=== PATIENT | male | born 1965 | race Caucasian/White ===

== ENCOUNTER 2018-04-06 14:11 | Outpatient (CLI) | payer MEDICAID, SELFPAY ==
--- NOTE | 2018-04-06 12:59 | DI.REPORT_ITS ---
SYMPTOM/DIAGNOSIS: F/U ORIF RT TIBIAL PLATEAU RIGHT KNEE: AP and lateral projections of the right knee are compared with the previous study of 03/24/18. Again noted is the severely comminuted proximal tibial fracture. Side plate and screw fixation devices in place. The fracture fragments remain in good position. No interval change is apparent.
== END 2018-04-06 14:12 ==
PROVIDERS: PCP Specialist/Technologist Athletic Trainer; Visit Provider Student in an Organized Health Care Education/Training Program
DX: S82.141D Displaced bicondylar fracture of right tibia, subsequent encounter for closed fracture with routine healing (principal)
CPT/HCPCS: 73560

== ENCOUNTER 2018-04-27 13:58 | Outpatient (CLI) | payer MEDICAID, SELFPAY ==
--- NOTE | 2018-04-27 13:52 | DI.REPORT_ITS ---
SYMPTOMS/DIAGNOSIS: F/U RIGHT KNEE OPEN REDUCTION AND INTERNAL FIXATION RIGHT KNEE: When compared with the prior study of 04/06, again noted is the fracture of the proximal tibia. Plate and screw fixation device is in place. There has been no evident change in the apposition or alignment of the fracture fragments.
== END 2018-04-27 13:59 ==
PROVIDERS: PCP Specialist/Technologist Athletic Trainer; Visit Provider Student in an Organized Health Care Education/Training Program
DX: S82.141D Displaced bicondylar fracture of right tibia, subsequent encounter for closed fracture with routine healing (principal)
CPT/HCPCS: 73560

== ENCOUNTER 2018-04-28 08:09 | Outpatient (CLI) | payer MEDICAID, SELFPAY ==
--- NOTE | 2018-04-28 13:33 | DI.RPTCT_ITS ---
SYMPTOM/DIAGNOSIS: CLOSED FX RT TIBIAL PLATEAU, S82.141D, S/P ORIF RT TIB PLATEAU WITH FLEXION BLOCK, EVALUATE FOR BONY IMPINGEMENT RIGHT KNEE CT; Multiple contiguous axial images of the right knee were obtained. Sagittal and coronal reformatted images were evaluated on the Siemens work station. Comparison xray is 05/28/18. There is a comminuted fracture involving components of both the lateral and medial tibial plateau and the tibial spines. There are side plates and screws transfixing the fracture. There is artifact from the patient's orthopedic hardware. There is a depressed component of the fracture through the lateral tibial plateau. There is depression of approximately 5 mm. noted. There is an osseous fragment measuring 2.1 AP by 1.1 transverse just lateral to the tibial spines. The fracture fragment is rotated 90 degrees. The articular surface of the fracture fragment is directed medially (series 6, image 341). There is a smaller 1.3 cm. fracture fragment just lateral to the tibial spines which is rotated 90 degrees with the articular surface of the fracture fragment directed posteriorly (series 6, image 345). No new fractures or dislocations are appreciated. There is a small persistent joint effusion. There is edema seen in the soft tissues about the knee. IMPRESSION: Status post internal fixation of a comminuted, mildly depressed tibial plateau fracture as described above.
== END 2018-04-28 08:10 ==
PROVIDERS: PCP Specialist/Technologist Athletic Trainer; Visit Provider Student in an Organized Health Care Education/Training Program
DX: S82.141D Displaced bicondylar fracture of right tibia, subsequent encounter for closed fracture with routine healing (principal); M25.461 Effusion, right knee
CPT/HCPCS: 73700

== ENCOUNTER 2018-05-05 10:52 | Day surgery (SDC) | payer MEDICAID, SELFPAY ==
[2018-05-05 11:08] VITALS: BP 115/74; PULSE 63; RESP 16; TEMP 36.9; O2SAT 96
[2018-05-05] MEDS: Lactated Ringers 1,000 ML 80 ML IV (11:48)
[2018-05-05 13:53] VITALS: BP 130/64; PULSE 60; RESP 14; TEMP 36.3; O2SAT 95
[2018-05-05 13:58] VITALS: BP 128/71; PULSE 59; RESP 14; TEMP 36.3; O2SAT 97
--- NOTE | 2018-05-05 13:59 | W.PM.DSUDISC ---
Discharge Plan Discharge Details Reason For Visit: (R) KNEE Attending Provider: Anthony Coyle Primary Care Provider: Ruperto Arango Disposition Patient Disposition: HOME Condition: Good Home Meds and New Rx's Prescriptions: Continue acetaminophen [Mapap Extra Strength] 500 MG tablet 1,000 mg PO TID PRN PRNQty: 100 RF: 3 ibuprofen 600 MG tablet 600 mg PO TID PRN PRNQty: 90 RF: 3 aspirin [Aspir-81] 81 mg Tablet,Delayed Release (Dr/Ec) 81 mg PO DAILY RF: 0 Discharge Instructions Additional Instructions: Activity: You may begin moving your knee as soon as possible. You shold work aggressively on flexion. In the operative room, the knee was bent to 110 degrees. You may wear the knee immobilizer for ambulation. You should only attempt to put 25% weight on the knee and progress very slowly using crutches. Medications: - Continue Tylenol and Ibuprofen Dressings: You may remove the dressings in 2-3 days and apply a bandaid. It may get wet after the initial dressing is removed. Follow-up: 1-2 weeks Equipment/Supplies: Non-Weight Bearing Crutches Activity:: Elevate Remove Dressings/Wound Care:: 72 hours Shower/Bathe:: 72 hours Diet:: As Tolerated Discharge Orders Discharge Orders: Discharge Order (Routine); Ordered 05/05/18 Ordered By: Anthony Coyle DS: Diagnosis Discharge Diagnosis (1) Closed fracture of right tibial plateau: Status: Acute (2) Arthrofibrosis of knee joint: Status: Acute
[2018-05-05 14:03] VITALS: BP 139/90; PULSE 57; RESP 19; TEMP 36.3; O2SAT 99
[2018-05-05] MEDS: Bupivacaine 0.5% Pres-Free 30 ML VIAL (14:04)
[2018-05-05 14:15] VITALS: BP 138/74; PULSE 57; RESP 15; TEMP 36.5; O2SAT 99
[2018-05-05] MEDS: HYDROcodone 5/Acetaminophen 325 TAB PO (14:57)
[2018-05-05 15:06] VITALS: BP 129/70; PULSE 54; RESP 16; TEMP 36; O2SAT 97
--- NOTE | 2018-05-06 10:00 | ROE_ITS ---
REPORT OF OPERATIVE PROCEDURE DATE OF SURGERY May 05, 2018 PREOPERATIVE DIAGNOSES Right knee arthrofibrosis status post ORIF of proximal tibia fracture. POSTOPERATIVE DIAGNOSES Right knee arthrofibrosis status post ORIF of proximal tibia fracture. SURGERY Arthroscopic right knee debridement with lysis of adhesions. SURGEON Anthony Coyle M.D. FINDINGS There was a small tear in the anterior portion of the medial meniscus. This was debrided down. The me dial compartment appeared to be intact without significant deformities. The lateral compartment in ge neral looked quite good with the meniscus appearing to be healing in, except for a portion within the anterior fibers of the lateral meniscus. There was the malrotated piece, which was seen on the x-ray , which was somewhat prominent by maybe a millimeter or two in the very lateral aspect of the notch. This was smoothed down with a dennis. The posterolateral aspect of the lateral tibial plateau did have a loose piece of cartilage, which was easily mobile and impinging on the femur. This was also removed . Significant adhesions were seen between the patella and within the suprapatellar pouch. These were resected and manipulation was performed showing postoperative knee flexion of 110 degrees from its pr eoperative flexion of 55 degrees. ANESTHESIA General. ESTIMATED BLOOD LOSS Minimal. COMPLICATIONS None. DISPOSITION The patient was awakened from anesthesia and taken to the PACU in stable condition. INDICATIONS FOR PROCEDURE Thomas is a 52-year-old who unfortunately suffered a complex proximal tibia fracture. He first underwent external fixation followed by upper fixation both medial and lateral approaches. He recovered nicely from a pain profile, but he was unable to really gain much motion. He had significant pain with both extension and flexion. He had one malrotated piece on the CT scan, but it was not clearly impinging, therefore, given this picture, I did recommend a lysis of adhesions with an arthroscopy to evaluate the knee motion in the Operating Room. I reviewed the risk of procedure to include bleeding, infection, pain, stiffness, re-fracture, recurr ent symptoms. Despite these risks, he elected to proceed. PROCEDURE DESCRIPTION Thomas was greeted in the preoperative holding area. His identity was confirmed and the correct side was identified and marked. The consent was reviewed with the patient and signed. The history and physic al was updated. He was taken back to the Operating Room and placed in a supine position. All bony prominences well pa dded. The right leg was prepped with ChloraPrep and draped in a standard fashion. A time-out was perf ormed for safe surgery. The right leg was then placed in a Spider II pneumatic leg rojas. The knee was insufflated with 60 cc of normal saline. A standard lateral approach was then made for the first knee portal site. With t he scope in the knee, I was able to visualize the knee for a diagnostic of arthroscopy. This showed s ignificant adhesions of the suprapatellar pouch and around the patella, both inferiorly and superiorl y. There was no significant cartilage damage of the trochlear or the patella. The lateral gutter was difficult to get in to due to scarring. There were significant amount of adhesions seen in this area and therefore it was deferred. I was able to get into the medial gutter, which showed an intact perip heral meniscus. Within the medial compartment itself, there was no significant cartilage damage. Ther e was some fraying of the anterior meniscus, which did not appear to destabilize the meniscus. Using a spinal needle, a medial portal was established. A probe was inserted. This again confirmed the diag nosis of no significant medial compartment disease. A shaver was inserted to debride the anterior med ial meniscus. This was a very small tear and did not seem to communicate with the anterior root. The fat pad was then also resected within this area and adhesions along with it. I was able to visualize the ACL, which showed it was intact. The very lateral aspect of the notch though, I did see this one area of abnormal bone appearance. While there was no clear cartilage visible or bone visible in a mal rotated position, there was a prominence of some bone. I used a bur to smooth this down in plane with the lateral compartment height. This also removed any prominence in this area. The adhesions and fat pad from the anterior and anterolateral knee continued to be resected using a s haver. I then brought the knee into a vivxye-th-qdav position. This showed that the anterior lateral meniscus also had a tear, which was somewhat of a radial tear in the very central portion of the meni scus. The fibers of the meniscus were quite tattered. I debrided these down. The peripheral of the me niscus appeared to be healing appropriately, as this was repaired with the surgery itself. The latera l tibial plateau did not show any significant signs of irregularity, except in the posterior aspect. The medial aspect of the tibial plateau did have a defect, but again it was right at the very base of the notch and not necessarily in the weightbearing portion of the lateral tibial plateau. On the pos terior lateral portion of the tibial plateau, there was a loose piece of cartilage. This was easily d isplaced and mobile with the probe and therefore it was removed. The posterior aspect of the lateral meniscus was intact. The limb was then brought back into supine position and adhesions around the pat yanet and the suprapatellar pouch were resected. The camera was removed from the knee. I then manipula angel the knee very gently, and it easily got to about 105 to 110 degrees. Extension was still lacking approximately 5 or so degrees of terminal extension. The wounds and the joint were then injected with 0.5% bupivacaine. They were closed with #3-0 Nylon. The wounds were dressed with Xeroform, 4x4s, ABD , Kerlix and an Chace wrap. A Cryo/Cuff was applied. At the end of the case, all counts were correct.
== END 2018-05-05 15:42 | disposition home or self-care (01) ==
PROVIDERS: PCP Specialist/Technologist Athletic Trainer; Visit Provider Student in an Organized Health Care Education/Training Program
PROC: (CPT 29870; principal; 2018-05-05 11:55)
DX: M24.661 Ankylosis, right knee (principal); S83.241A Other tear of medial meniscus, current injury, right knee, initial encounter; X58.XXXA Exposure to other specified factors, initial encounter; S82.141D Displaced bicondylar fracture of right tibia, subsequent encounter for closed fracture with routine healing; S83.411D Sprain of medial collateral ligament of right knee, subsequent encounter; S83.261D Peripheral tear of lateral meniscus, current injury, right knee, subsequent encounter; W11.XXXD Fall on and from ladder, subsequent encounter
CPT/HCPCS: 29884; J1100; J2405; J3010

== ENCOUNTER 2018-05-16 16:52 | Outpatient (CLI) | payer MEDICAID, SELFPAY ==
--- NOTE | 2018-05-16 10:18 | DI.RAD_ITS ---
SYMPTOM/DIAGNOSIS: S/P RT KNEE ORIF RIGHT KNEE: Two views. Comparison is made with 04/27/18. There are again seen side plate and screws transfixing the comminuted fracture involving the proximal right tibia. The fracture extends into the tibial plateau. No change in alignment of the orthopedic hardware or fracture components is seen. No new fractures or dislocations are appreciated.
== END 2018-05-16 17:12 ==
PROVIDERS: PCP Specialist/Technologist Athletic Trainer; Visit Provider Student in an Organized Health Care Education/Training Program
DX: S82.141D Displaced bicondylar fracture of right tibia, subsequent encounter for closed fracture with routine healing (principal)
CPT/HCPCS: 73560

== ENCOUNTER 2018-05-25 11:26 | Outpatient (CLI) | payer MEDICAID, SELFPAY ==
--- NOTE | 2018-05-25 15:05 | DI.RAD_ITS ---
SYMPTOM/DIAGNOSIS: RIGHT TIB PLATEAU RIGHT KNEE: When compared with the previous examination again noted is a comminuted fracture of the proximal right tibia, plate and compression screws in place, with no interval change in the alignment of the fracture components or position of the orthopaedic hardware.
== END 2018-05-25 11:46 ==
PROVIDERS: PCP Specialist/Technologist Athletic Trainer; Visit Provider Student in an Organized Health Care Education/Training Program
DX: S82.141D Displaced bicondylar fracture of right tibia, subsequent encounter for closed fracture with routine healing (principal)
CPT/HCPCS: 73560

== ENCOUNTER 2018-06-06 13:07 | Outpatient (CLI) | payer MEDICAID, SELFPAY ==
--- NOTE | 2018-06-06 13:46 | DI.RAD_ITS ---
SYMPTOMS/DIAGNOSIS: RT FOOT PAIN, RT MEDIAL MIDFOOT PAIN RIGHT ANKLE: Two views. No priors. The ankle joint appears fairly well maintained. The bones are intact and normally mineralized. The soft tissues are unremarkable. IMPRESSION: No acute abnormality. RIGHT FOOT: Three views. No acute fracture or dislocation is identified. The joint spaces appear well maintained. The soft tissues are unremarkable. IMPRESSION: No acute abnormality.
== END 2018-06-06 13:27 ==
PROVIDERS: PCP Specialist/Technologist Athletic Trainer; Visit Provider Student in an Organized Health Care Education/Training Program
DX: M25.571 Pain in right ankle and joints of right foot (principal); M79.671 Pain in right foot
CPT/HCPCS: 73600; 73630

== ENCOUNTER 2018-06-06 14:13 | Outpatient (CLI) | payer MEDICAID, SELFPAY ==
--- NOTE | 2018-06-06 15:29 | DI.US_ITS ---
SYMPTOMS/DIAGNOSIS: SOFT TISSUE DISORDER, M79.89, RIGHT LOWER EXTREMITY SWELLING, RUBOR, S/P OPEN REDUCTION INTERNAL FIXATION OF RIGHT TIBIAL PLATEAU WITH FLEXION BLOCK, PRIOR MID DISTAL PTV THROMBUS RIGHT LOWER EXTREMITY ULTRASOUND: The deep veins of the right lower extremity show normal compression, augmentation and color flow. There is edema seen in the lower extremity soft tissues. In the mid calf, there is a superficial vein with noncompressible thrombus. IMPRESSION: 1. No evidence of a right lower extremity deep venous thrombus. 2. Superficial thrombophlebitis.
== END 2018-06-06 14:33 ==
PROVIDERS: PCP Specialist/Technologist Athletic Trainer; Visit Provider Student in an Organized Health Care Education/Training Program
DX: I80.01 Phlebitis and thrombophlebitis of superficial vessels of right lower extremity (principal); M79.89 Other specified soft tissue disorders
CPT/HCPCS: 93971

== ENCOUNTER 2018-06-20 10:44 | Outpatient (CLI) | payer MEDICAID, SELFPAY ==
--- NOTE | 2018-06-20 10:41 | DI.RAD_ITS ---
SYMPTOM/DIAGNOSIS: F/U ORIF RIGHT KNEE: Comparison is made with 05/25/18. There has been no change in the hardware in the proximal tibia for fracture fixation. There has been no change in the fracture alignment. There has been continued healing when compared with previous exam. No new abnormalities are seen.
== END 2018-06-20 11:04 ==
PROVIDERS: PCP Specialist/Technologist Athletic Trainer; Visit Provider Student in an Organized Health Care Education/Training Program
DX: S82.141D Displaced bicondylar fracture of right tibia, subsequent encounter for closed fracture with routine healing (principal)
CPT/HCPCS: 73560

== ENCOUNTER 2018-07-18 10:13 | Outpatient (CLI) | payer MEDICAID, SELFPAY ==
--- NOTE | 2018-07-18 10:10 | DI.RAD_ITS ---
SYMPTOM/DIAGNOSIS: F/U RT KNEE ORIF RIGHT KNEE: 07/18 Three views were obtained and show plate and screw fixation of proximal tibial fracture with no gross interval change in alignment of the fracture fragments in comparison with examination of 06/20/18
== END 2018-07-18 10:33 ==
PROVIDERS: PCP Specialist/Technologist Athletic Trainer; Visit Provider Student in an Organized Health Care Education/Training Program
DX: S82.141D Displaced bicondylar fracture of right tibia, subsequent encounter for closed fracture with routine healing (principal)
CPT/HCPCS: 73560

== ENCOUNTER 2018-07-26 12:49 | Day surgery (SDC) | payer MEDICAID, SELFPAY ==
[2018-07-26] VITALS (8 sets, daily range): BP systolic 129–154; BP diastolic 74–98; PULSE 52–61; RESP 11–16; TEMP 36.4–36.8; O2SAT 97–100
[2018-07-26] MEDS: Lactated Ringers 1,000 ML 80 ML IV (13:25)
[2018-07-26] MEDS: Bupivacaine 0.25% Pres-Free 30 ML VIAL (14:48)
--- NOTE | 2018-07-26 15:14 | W.PM.DSUDISC ---
Discharge Plan Disposition Patient Disposition: HOME Condition: Good Discharge Details Attending Provider: Anthony Coyle Primary Care Provider: Ruperto Arango Home Meds and New Rx's Prescriptions: Continue Continuous Passive Movement Machine Qty: 1 RF: 0 fexofenadine-pseudoephedrine [Katey-D 12 Hour] 60-120 mg Tablet Extended Release 12 Hr 1 tab PO Q12H PRNRF: 0 acetaminophen [Mapap Extra Strength] 500 MG tablet 1,000 mg PO TID PRN PRNQty: 100 RF: 3 ibuprofen 600 MG tablet 600 mg PO TID PRN PRNQty: 90 RF: 3 aspirin [Aspir-81] 81 mg Tablet,Delayed Release (Dr/Ec) 81 mg PO DAILY RF: 0 Discharge Instructions Additional Instructions: Start moving the knee tomorrow. Work on flexion and extension. Stand Alone Forms: [facility] Knee Arthroscopy Equipment/Supplies: Partial Weight Bearing Crutches Activity:: Elevate Remove Dressings/Wound Care:: 48 hours Shower/Bathe:: 48 hours Diet:: As Tolerated Discharge Orders Discharge Orders: Discharge Order (Routine); Ordered 07/26/18 Ordered By: Anthony Coyle DS: Diagnosis Discharge Diagnosis (1) Arthrofibrosis of knee joint: Status: Acute
[2018-07-26] MEDS: HYDROcodone 5/Acetaminophen 325 TAB PO (15:33)
--- NOTE | 2018-07-27 07:37 | ROE_ITS ---
Date of service: 07/26/18 Time of Service: 15:30 Operative Note DATE OF PROCEDURE: 07/26/18 PRE-OP DIAGNOSIS: Right knee arthrofibrosis POST-OP DIAGNOSIS: same PROCEDURE: Right knee arthroscopic synovectomy with manipulation under anesthesia SURGEON: Anthony Coyle ANESTHESIA: VALERIA ESTIMATED BLOOD LOSS: 10 PATHOLOGY: none sent COMPLICATIONS: None Patient was transported to: PACU Patient's condition: stable Indications: I have seen Thomas in clinic for symptoms arthrofibrosis following repair of a bicondylar tibial plateau fracture. He has made good gains in far as pain and weightbearing status but still lacks significant flexion and extension. I reviewed the risks of the procedure to include, but not limited to , bleeding, infection, pain, stiffness, damage to nerves or vessels, recurrence , blood clot. Despite these risks, the patient elected to proceed. Findings: A diagnostic arthroscopy was performed with the following findings: Suprapatellar Pouch: Significant inflammation as well as adhesions, no loose bodies Medial Compartment: Minor central fraying of the meniscus, but no significant tear, intact meniscal root, some focal areas of grade II chondromalacia seen over the distal, medial femur and some global grade 1 changes over the tibial surface, no loose bodies Notch: ACL and PCL were intact Lateral Compartment: No meniscal tear, intact meniscal root, there was a fissure seen in the posterior aspect of the lateral compartment. 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 Postmanipulation flexion was 105 degrees and extension was 10 degrees Procedure Description: Thomas was greeted in the preoperative holding area where the correct side was identified and marked. The consent was reviewed with the patient and signed. The history and physical was updated. All questions were answered. Thomas was taken back to the operating room. The patient was placed into the supine position on the operating room table. A nonsterile tourniquet was placed high onto the leg but not used. All bony prominences were well padded. Prophylactic antibiotics in the form of cefazolin were administered. The right leg was then prepped with Chloraprep and draped in a standard fashion with stockinette and extremity drape. A timeout to confirm correct identity, side and site, procedure, allergies, anesthesia, and medical concerns was performed. The leg was placed into a pneumatic leg rojas, [id number]. A standard lateral portal was made at the lateral border of the patella tendon in line with the inferior pole of the patella, soft spot. The skin and deep tissue was incised sharply and the blunt trochar was inserted atraumatically. A diagnostic arthroscopy was performed and the findings are listed above. The suprapatellar pouch had significant inflammatory change as well as adhesions seen connecting the capsule to the femoral synovium and femur. The patellofemoral articulation showed some grade II chondromalacia as well as good tracking. The lateral gutter had no loose bodies and the medial gutter had no loose bodies. The knee was brought into some valgus stress in extension to open the medial compartment. A medial portal was made, localized by a spinal needle. The portal was created with an #11 blade through skin and capsule under direct visualization avoiding any meniscal injury. A probe was then inserted into the medial compartment. The medial compartment was fully inspected. The chondral surface of the tibia showed some grade I chondromalacia and the surface of the femur showed little chondral change except for some focal changes of grade 3 significance over the distal, medial aspect of the distal femur. The medial meniscus had no significant meniscal tear but some minor fraying in its central portions. There was scarring and adhesions seen anterior to the joint surface which were debrided lightly with the shaver. The notch was then inspected which showed an intact ACL and an intact PCL. The leg was then brought into a figure of 4 position. The lateral compartment was fully inspected with the arthroscope and a probe. The chondral surface of the lateral femur showed had some focal areas of grade II chondromalacia with some global grade I chondromalacia. The chondral surface of the lateral tibia showed focal areas of grade 2 as well as some grade I chondromalacia throughout. In the posterior aspect of the lateral tibia there was a fissure seen which was not unstable and was not debrided.. The lateral meniscus had signs of previous meniscal tear at the periphery but no gross tear currently. Adhesions and thickening of the capsule were debrided around the lateral joint. The arthroscope was brought back into the suprapatellar pouch and the leg was in full extension. The adhesions superiorly were removed with electrocautery. A synovectomy was performed in this area to decrease adhesions and free up the patella as well as the quadriceps mechanism. The knee was thoroughly irrigated with the arthroscopic fluid on high flow and pressure. Inflow was stopped and excess fluid was removed. Manipulation was then performed. The knee easily flexed more than it had previously. I was able to get the knee to about 105 degrees of flexion. Extension seem to improve slightly to about 10 degrees. The wounds were closed with 4-0 Nylon. The portal sites and the knee were then injected with 0.25% bupivacaine. They were dressed with Xeroform, 4x4 gauze, ABD pad, Kerlix and an RAKESH wrap. The patient tolerated the procedure well and was returned to the [facility] Day Surgery area in a stable condition suffering no known complication.
== END 2018-07-26 17:04 | disposition home or self-care (01) ==
PROVIDERS: PCP Specialist/Technologist Athletic Trainer; Visit Provider Student in an Organized Health Care Education/Training Program
PROC: (CPT 29870; principal; 2018-07-26 15:00)
PROC: (CPT 27570; 2018-07-26 15:00)
DX: M24.661 Ankylosis, right knee (principal); S82.141S Displaced bicondylar fracture of right tibia, sequela; X58.XXXS Exposure to other specified factors, sequela; M94.261 Chondromalacia, right knee; M22.41 Chondromalacia patellae, right knee; M23.8X1 Other internal derangements of right knee
CPT/HCPCS: 27570; 29875; 29884; J0690; J1100; J1885; J2405

== ENCOUNTER 2020-01-04 18:08 | Outpatient (REF) | payer MEDICAID, SELFPAY ==
[2020-01-04 19:09] LABS: CREATININE 0.93 mg/dL (0.70-1.30)
== END 2020-01-04 18:28 ==
LOC: NCHCN 18:08
PROVIDERS: PCP Specialist/Technologist Athletic Trainer; Visit Provider Nurse Practitioner Family
DX: R10.9 Unspecified abdominal pain (principal)
CPT/HCPCS: 82565

== ENCOUNTER 2020-01-09 00:33 | Outpatient (CLI) | payer MEDICAID, SELFPAY ==
--- NOTE | 2020-01-09 | DI.CT_ITS ---
EXAM: CT ABDOMEN PELVIS W CLINICAL HISTORY: LOW ABD PAIN, R10.30 CT CTA AORTA W/RUNOFF from 03/16/2018 FINDINGS: CT examination the of the abdomen and pelvis was performed with a bolus infusion 100 cc of Omnipaque 350 and ingestion of dilute barium. Images obtained through the lung bases show cardiomegaly. There is an 8 millimeter well-circumscribed lingular intrapulmonary nodule and there is also a somewhat ir regular multi nodular radiodensity which is elongated and possibly spiculated in the lingula, this is uncertain etiology and may represent an intrapulmonary mass. Alternatively this may represent scarr ing or rounded atelectasis as there is a questionably ?whorled? appearance. This was not present on prior CT of February 2018. Chest CT suggested for full evaluation of the lungs. The liver and spleen are unremarkable in appearance. Gallbladder and bile ducts are CT normal. The diaphragm is elevated on the left. Pancreas appears normal. Adrenals and kidneys appear normal. No urinary tract calcification or obstruction. Abdominal aorta is pf normal diameter and no major vasc ular abnormality is seen. There are small bilateral fat containing inguinal hernias, left greater than right. No abdominal or pelvic adenopathy seen. The appendix appears normal. There is a rounded area of increased fat attenuation seen adjacent to a n otherwise unremarkable appearing descending/sigmoid junction, the findings are suggestive of epiplo ic appendagitis. No diverticulitis. No abscess. No evidence of bowel obstruction. IMPRESSION: There are radiodensities of the lingula with a masslike appearance as described above. Chest CT adry mmended for further evaluation. Epiploic appendagitis of the descending sigmoid junction.
[2020-01-09] MEDS: Omnipaque 350 MG/ML 50 ML BTL IJ (08:41)
[2020-01-09] MEDS: Breeza Beverage 473 ML BTL PO (08:41)
[2020-01-09] MEDS: Omnipaque 350 MG/ML 100 ML BTL IJ (09:48)
== END 2020-01-09 00:53 ==
PROVIDERS: PCP Specialist/Technologist Athletic Trainer; Visit Provider Nurse Practitioner Family
DX: R10.30 Lower abdominal pain, unspecified (principal); I51.7 Cardiomegaly; R91.8 Other nonspecific abnormal finding of lung field; K40.20 Bilateral inguinal hernia, without obstruction or gangrene, not specified as recurrent; K63.89 Other specified diseases of intestine
CPT/HCPCS: 74177; J3490; Q9967

== ENCOUNTER 2020-01-15 00:36 | Outpatient (CLI) | payer MEDICAID, SELFPAY ==
--- NOTE | 2020-01-15 14:40 | DI.CT_ITS ---
EXAM: CT CHEST W CLINICAL HISTORY: F/U ABNL CT, INTRAPULMONARY NODULE, ? MASS TECHNIQUE: Imaging Protocol: Axial computed tomography images with coronal and sagittal reformatted images were created and reviewed CONTRAST MATERIAL: Intravenous: Omnipaque 350 Contrast volume:70 mL. COMPARISON: CT CT ABDOMEN PELVIS W from 01/09/2020 FINDINGS: Tracheobronchial tree: Patent where visualized. Mediastinum and Ludy: No dominant adenopathy or fluid collection. Pulmonary parenchyma: The 8 mm nodular density in the left lingula that is unchanged. The area of ir regular density the inferior lingula is unchanged. No other pulmonary nodules are identified. No fo [place] areas of consolidation are present. Pleura: No effusion or pneumothorax. Heart: The heart is not dilated. No coronary artery calcifications are seen. No pericardial effusion is present. Aorta: Thoracic aorta non-dilated. Upper abdomen: No acute abnormality. There is unchanged elevation of the left hemidiaphragm. Lymph nodes: Within normal limits. Bones: Age appropriate degenerative changes are present. IMPRESSION: 1. Stable 8 mm nodular density in the left lingula. For the high risk patient, a follow-up CT scan o f the chest in 6-12 months is suggested. 2. Irregular density in the inferior lingula.This may represent an area of scarring, atelectasis or p neumonia. Mass cannot be entirely excluded. A follow-up CT scan or PET-CT scan should be considered , if this is a high risk patient. RADIATION DOSE DELIVERED: Total DLP DATA REPOSITORY: All CT scans at this facility are submitted to the National Radiology Data Registry (NRDR) Dose Index Registry (DIR) with the [employer] (ACR). RADIATION OPTIMIZATION: All CT scans at this facility use at least one of these dose optimization te chniques: automated exposure control; mA and/or kV adjustment per patient size (includes targeted exa ms where dose is matched to clinical indication); or iterative reconstruction.
[2020-01-15] MEDS: Omnipaque 350 MG/ML 100 ML BTL IJ (15:05)
[2020-01-15] MEDS: Normal Saline - Diluent 50 ML VIAL IV (15:06)
== END 2020-01-15 00:56 ==
PROVIDERS: PCP Physician Assistant Medical; Visit Provider Family Medicine
DX: R91.1 Solitary pulmonary nodule (principal); R91.8 Other nonspecific abnormal finding of lung field
CPT/HCPCS: 71260; J3490

== ENCOUNTER 2020-02-13 08:47 | Emergency (ER) | payer MEDICAID, SELFPAY ==
[2020-02-13 08:51] VITALS: BP 135/60; PULSE 67; TEMP 36.8; O2SAT 97
--- NOTE | 2020-02-13 09:12 | ED.GENADUL_ITS ---
Discharge Plan Disposition Patient Disposition: HOME Condition: Stable Discharge Details Chief Complaint: Abd Prob Clinical Impression: Indirect inguinal hernia Primary Care Provider: Tabatha Whitaker ED Provider: Elli Barber Home Meds and New Rx's Prescriptions: No Action (DME) Continuous Passive Movement Machine Qty: 1 RF: 0 fexofenadine-pseudoephedrine [Katey-D 12 Hour] 60-120 mg Tablet Extended Release 12 Hr 1 tab PO Q12H PRNRF: 0 acetaminophen [Mapap Extra Strength] 500 MG tablet 1,000 mg PO TID PRN PRNQty: 100 RF: 3 ibuprofen 600 MG tablet 600 mg PO TID PRN PRNQty: 90 RF: 3 aspirin [Aspir-81] 81 mg Tablet,Delayed Release (Dr/Ec) 81 mg PO DAILY RF: 0 Discharge Instructions Instructions: Inguinal Hernia (ED) Additional Instructions: Avoid heavy lifting. If coughing, sneezing or necessary lifting please hold pressure to the left groin as discussed to support weakness in the abdominal wall. Please follow-up as an outpatient with surgical staff. Referral will be provid ed. Please call the office for follow-up in the next week. For any increase in abdominal pain, worsening symptoms, difficulty moving bowels, fever have immediate reevaluation in the emergency room Consider stool softeners to ease bowel movements Return for any worsening, concerns or alarming symptoms sooner if needed Referrals: Shy Ribeiro MD [ [facility]] - Discharge Data Discharge Date/Time-TO BE ENTERED AT DEPARTURE: 02/13/20 21:30 Medical Decision Making <ROCK Royal - Last Filed: 02/15/20 14:59> 54-year-old patient presenting the emergency room for 3 to 4 weeks of left lower abdominal pain which has been noted intermittently. Patient reports he predom inately notes pain in the morning. Pain does improve after 1 to 2 hours. Patient denies nausea, vomiting, dysuria, urgency or frequency. No inability to urinate. Denies any change in bowels. Patient had 2 well-formed bowel movements this morning. Patient reports he did see his PCP for complaints of intermittent pain which are occasionally sharp at times. Patient had a CT scan unrevealing of acute abnormality in the abdomen. He did have a few pulmonary nodules noted for which he had a subsequent chest CT scan. Patient reports despite imaging his pain has been persistent. Patient presents this morning after noting a obvious area of swelling in the left groin at the site of his pain. This area of swelling is new this morning. Patient awoke with pain and swelling. Swelling has persisted for the last few hours. Again patient denies any associated nausea, vomiting or bowel changes. No fever or chills. No chest pain with difficulty breathing shortness of breath or wheezing. Patient does have mild back pain after exertive work he threw his back out. Patient reports that pain is essentially resolved. Patient denies any testicular pain or swelling. On exam patient has a notable area of swelling in the left groin is palpable and consistent with indirect inguinal hernia, pain with palpation at the site. Light pressure held to the area, hernia fully reduced. Patient reports immediate reduction in pain. The remainder of patient's abdominal exam is benign. Patient has no peritoneal signs, rebound or guarding. Back exam is benign. No CVA tenderness. Patient's exam is normal. Reviewed patient's previous imaging. On CT scan bilateral inguinal hernias are noted containing fat. Left inguinal hernia greater than right. Discussed with Dr. Ribeiro regarding patient's clinical presentation, reducible hernia noted on exam and improvement of pain after reduction. She recommends consult to the office for follow-up this week. Patient agrees with plan of ca re. Discussed how to reduce hernia. Discussed providing pressure when coughing or sneezing at this site as well as avoiding heavy lifting temporarily until able to seek follow-up. Patient agreeable to this plan of care. Signs and symptoms to return were discussed. The patient was stable and requested discharge. Prior to discharge, my usual and customary return precautions were reviewed with the patient - this included follow-up instructions and reasons to return to the Emergency Department if conditions worsens, does not improve as expected, or other new concerns arise. <Brennan Bennett MD - Last Filed: 02/13/20 09:25> Patient seen, examined, and discussed with ROCK Sams. Patient was examined after ROCK Sams reduced left inguinal hernia. Abdominal exam now benign. Patient feels much better. ROCK Sams spoke with personal insurance advisor surgery, Dr. Ribeiro, who recommends outpatient follow-up. I agree with treatment plan as discussed/documented. Usual and customary discharge instructions were reviewed with the patient. HPI <ROCK Royal - Last Filed: 02/15/20 14:59> General Date/Time Provider Initiated Documentation: 02/13/20 08:50 . HPI Narrative: 54-year-old patient presenting the emergency room for 3 to 4 weeks of left lower abdominal pain which has been noted intermittently. Patient reports he predominately notes pain in the morning. Pain does improve after 1 to 2 hours. Patient denies nausea, vomiting, dysuria, urgency or frequency. No inability to urinate. Denies any change in bowels. Patient had 2 well-formed bowel movements this morning. Patient reports he did see his PCP for complaints of intermittent pain which are occasionally sharp at times. Patient had a CT scan unrevealing of acute abnormality in the abdomen. He did have a few pulmonary nodules noted for which he had a subsequent chest CT scan. Patient reports despite imaging his pain has been persistent. Patient presents this morning after noting a obvious area of swelling in the left groin at the site of his pain. This area of swelling is new this morning. Patient awoke with pain and swelling. Swelling has persisted for the last few hours. Again patient denies any associated nausea, vomiting or bowel changes. No fever or chills. No chest pain with difficulty breathing shortness of breath or wheezing. Patient does have mild back pain after exertive work he threw his back out. Patient reports that pain is essentially resolved. Patient denies any testicular pain or swelling. Related Data Home Medications Medication Instructions Recorded Confirmed acetaminophen [Mapap Extra 1,000 mg PO TID PRN PRN #100 tab 03/18/18 09/21/18 Strength] ibuprofen 600 mg PO TID PRN PRN #90 tab 03/18/18 09/21/18 aspirin [Aspir-81] 81 mg PO DAILY 05/05/18 09/21/18 Continuous Passive Movement Machine #1 ea 06/03/18 09/21/18 fexofenadine-pseudoephedrine 1 tab PO Q12H PRN 07/25/18 09/21/18 [Katey-D 12 Hour] Previous Rx's Medication Instructions Recorded acetaminophen [Mapap Extra 1,000 mg PO TID PRN PRN #100 tab 03/18/18 Strength] ibuprofen 600 mg PO TID PRN PRN #90 tab 03/18/18 Continuous Passive Movement Machine #1 ea 06/03/18 Allergies Allergy/AdvReac Type Severity Reaction Status Date / Time No Known Allergies Allergy Verified 02/13/20 08:56 General Stated Complaint: Abd Prob BEN: 3 Review of Systems <ROCK Royal - Last Filed: 02/15/20 14:59> All systems reviewed & are unremarkable except as noted in HPI and below PFSH <ROCK Royal - Last Filed: 02/15/20 14:59> Social History Smoking/Tobacco Use Status: Never Drug use: Never Substance use type: does not use Do you feel safe at home: Yes Do you feel safe in your relationship?: Yes Exam <ROCK Royal - Last Filed: 02/15/20 14:59> Narrative Exam Narrative: CONST: Healthy appearing patient, in no acute distress. Well hydrated. Alert and oriented. HENMT: Head nomocephalic, normal to inspection. Atraumatic. Hearing grossly normal. External ear canal no erythema or swelling. TM normal bilaterally. Nose normal to inspection. No rhinnorhea. Normal facial exam. Oral mucosa normal. Tounge normal. Dentition normal. Normal posterior oropharynx. Uvula midline. EYES: General normal appearance. Alignment normal. Eyelids normal. Conjunctiva n ormal. Sclera normal. PERRL. NECK: Normal visual inspection. FROM. No lymphadenopathy. Trachea midline. No Midline tenderness. CHEST: Normal insepection of the chest. RESP: Normal respiratory effort. Speaking full sentences. No cough. No wheezing. No retractions. Clear to auscaltation. Breath sound equal and present bilaterally. CARDIO: No JVD. Normal PMI. Regular Rate. Regular Rhythm. Normal peripheral pulses. GI: Normal inspection of abdomen. No distension. Soft. Area of swelling is evident in the left lower abdomen consistent with a indirect hernia. Nonpulsatile swelling. Able to reduce hernia in the left groin with gentle pressure. Immediate improvement in pain noted by the patient. Bowel sounds present in all 4 quadrants. No rebound. No gaurding. No peritoneal signs. : No testicular or scrotal tenderness noted on exam. No testicular swelling. Indirect hernia noted on exam. MUSCULOSKELETAL: Normal Gait. FROM of all extremities. Distal neurovascularly intact. Sensation intact distally. SKIN: Normal. Dry. No rashes. NEURO: Alert and awake. Speech clear. PSYCH: Normal affect. Cooperative. Course <ROCK Royal - Last Filed: 02/15/20 14:59> Vital Signs Vital signs: Vital Signs Temperature 36.8 C 02/13/20 08:51 Pulse 67 02/13/20 08:51 Blood Pressure 135/60 02/13/20 08:51 Pulse Oximetry 97 02/13/20 08:51 Temperature 36.8 C 02/13/20 08:51 Temperature Source Temporal Artery Scan 02/13/20 08:51 Pulse 67 02/13/20 08:51 Respiratory Effort Non-Labored 02/13/20 08:55 Blood Pressure 135/60 02/13/20 08:51 Blood Pressure Position Sitting 02/13/20 08:51 Pulse Oximetry 97 02/13/20 08:51 Oxygen Delivery Method Room Air 02/13/20 08:51 Oxygen Flow Rate 0 02/13/20 08:51 Pain Level 6 02/13/20 08:51
--- NOTE | 2020-02-13 09:30 | NUR.NOTE ---
Referral faxed to [facility] Nursing Note:
== END 2020-02-13 21:30 | disposition home or self-care (01) ==
PROVIDERS: Emergency Provider Physician Assistant; PCP Nurse Practitioner Family
DX: K40.90 Unilateral inguinal hernia, without obstruction or gangrene, not specified as recurrent (principal)
CPT/HCPCS: 99282; 99283

== ENCOUNTER 2021-09-01 14:17 | Outpatient (REF) | payer MEDICAID, SELFPAY ==
[2021-09-01 19:54] LABS: Abs Immature Grans 0.02 10^3/uL (0.0-0.06); Absolute Basophil Count 0.05 10^3/uL (0.0-0.2); Absolute Eosinophil Count 0.12 10^3/uL (0.0-0.7); Absolute Lymphocyte Count 1.72 10^3/uL (1.2-3.4); Absolute Neutrophil Count 3.48 10^3/uL (1.2-6.7); Basophils % 0.9; Eosinophils % 2.1; HCT 44.9 % (40.0-50.0); HGB 14.3 g/dL (13.5-17.5); Immature Grans % 0.3; Lymphocytes % 29.7; MCH 30.5 pg (27.0-33.0); MCHC 31.8 % (32.0-36.0); MCV 95.7 fL (80-95); MPV 9.5 fL (8.0-11.0); Monocytes % 6.9; Neutrophils % 60.1; Nucleated RBC 0 %; Platelet Count 258 10^3/uL (130-400); RBC 4.69 10^6/uL (4.36-5.78); RDW 12.5 % (11.8-14.1); RDW-SD 44.4 fL; WBC 5.79 10^3/uL (4.4-10.8)
[2021-09-01 19:57] LABS: ESR 5 mm/hr (0-20)
[2021-09-01 20:04] LABS: Hemoglobin A1C 5.5 % (<5.7)
[2021-09-01 20:13] LABS: ALT 39 U/L (16-63); AST 20 U/L (15-37); Albumin 4.1 g/dL (3.4-5.0); Alkaline Phosphatase 56 U/L (46-116); BUN 16 mg/dL (7-18); Bilirubin, Total 0.3 mg/dL (0.2-1.0); Calcium 8.7 mg/dL (8.5-10.1); Calculated LDL 131 mg/dL (<100); Chloride 104 mmol/L (98-107); Cholesterol 223 mg/dL (<200); Glucose 101 mg/dL (74-106); HDL Cholesterol 47 mg/dL (40-60); Potassium 4.1 mmol/L (3.5-5.1); Sodium 141 mmol/L (136-145); Triglyceride 226 mg/dL (<150)
[2021-09-01 20:15] LABS: C-Reactive Protein < 0.05 mg/dL (0.0-0.3)
[2021-09-03 11:20] LABS: Lyme Ab w Rflx to Lyme Confirm Negative (Negative)
[2021-09-03 11:26] LABS: Hepatitis C Ab w Rflx HCV PCR Negative (Negative)
[2021-09-03 12:41] LABS: HIV-1/2 Ag & Ab Screen Negative (Negative)
[2021-09-04 19:23] LABS: Anaplasma phagocytophilum Negative (Negative); B. miyamotoi PCR Negative (Negative); Babesia divergens/MO-1 Negative (Negative); Babesia duncani Negative (Negative); Babesia microti Negative (Negative); Ehrlichia chaffeensis Negative (Negative); Ehrlichia ewingii/canis Negative (Negative); Ehrlichia muris eauclairensis Negative (Negative)
== END 2021-09-01 14:18 | disposition home or self-care (01) ==
LOC: NCHCN 14:17
PROVIDERS: PCP Nurse Practitioner Family; Visit Provider Nurse Practitioner Family
DX: M25.59 Pain in other specified joint (principal); Z00.00 Encounter for general adult medical examination without abnormal findings; Z11.4 Encounter for screening for human immunodeficiency virus [HIV]; Z11.59 Encounter for screening for other viral diseases; Z13.220 Encounter for screening for lipoid disorders; Z13.1 Encounter for screening for diabetes mellitus
CPT/HCPCS: 80053; 80061; 85652; 86803; 87389; 87798; 83036; 85025; 86140; 86618

== ENCOUNTER 2021-12-30 00:47 | Outpatient (CLI) | payer MEDICAID, SELFPAY ==
--- NOTE | 2021-12-30 09:04 | DI.CT_ITS ---
Exam(s) CT CHEST W EXAM: CT CHEST W CLINICAL HISTORY: LUNG NODULES, R91.8, [address] 12/2019, 2-YEAR F/U. TECHNIQUE: Multi planar reconstructions were performed. CONTRAST MATERIAL: Omnipaque 350; 75 cc COMPARISON: CT CT CHEST W from 01/15/2020 FINDINGS: CHEST: LUNGS: In the left lower lobe the previously described small nodule remains stable.. In the lingular segment there is a 3 millimeters stable appearing nodule. In the inferior lingular segment previous ly present infiltrate has resolved but there is now a 6 millimeter noncalcified nodule at this level (series 4/image 48). In the opposite-right lung there are unchanged benign-appearing increased markings in the medial basa l segment of the right lower lobe. There are no pleural effusions There are no new findings in the trachea and mainstem bronchi. There is no bronchiectasis. MEDIASTINUM: There is no hilar nor mediastinal adenopathy. Visualized thyroid unremarkable. CARDIAC: Mild cardiomegaly. No pericardial effusion. Caliber of the thoracic aorta there is within normal limits. No evidence of aortic dissection.Caliber of the thoracic aorta is within normal limit s. VISUALIZED UPPER ABDOMEN:There are no significant adrenal masses. OSSEOUS: No significant osseous lesions.. IMPRESSION: 1. Compared to the prior CT scan of 01/15/2020 previously described small nodular densities in the stroud perior lingular segment and posterior basal segment of the left lower lobe remain unchanged, as is a 5 millimeter nodule in the lateral basal segment of the left lower lobe. However, with regards to th e inferior lingular segment infiltrate previously described, it has mostly resolved and at the same l ocation there is now a new 6 millimeter noncalcified nodule which will require close follow-up. 2. No new significant right lung findings. 3. There are no pleural effusions on either side and there is no intrathoracic adenopathy. RADIATION DOSE DELIVERED: 579.89mGy.cm Total DLP DATA REPOSITORY: All CT scans at this facility are submitted to the National Radiology Data Registry (NRDR) Dose Index Registry (DIR) with the [employer] ([employer]). RADIATION OPTIMIZATION: All CT scans at this facility use at least one of these dose optimization te chniques: automated exposure control; mA and/or kV adjustment per patient size (includes targeted exa ms where dose is matched to clinical indication); or iterative reconstruction.
[2021-12-30] MEDS: Omnipaque 350 MG/ML 100 ML BTL 70 ML IJ (09:22)
== END 2021-12-30 01:07 ==
PROVIDERS: PCP Nurse Practitioner Family; Visit Provider Nurse Practitioner Family
DX: R91.8 Other nonspecific abnormal finding of lung field (principal); R91.1 Solitary pulmonary nodule; I51.7 Cardiomegaly
CPT/HCPCS: 71260; J3490

== ENCOUNTER 2024-01-07 11:15 | Outpatient (REF) | payer MEDICAID, SELFPAY ==
[2024-01-07 14:27] LABS: Hemoglobin A1C 5.6 % (<5.7)
[2024-01-07 14:43] LABS: ALT 36 U/L (16-63); AST 17 U/L (15-37); Alkaline Phosphatase 53 U/L (46-116); Anion Gap 7.1 mmol/L (3-11); BUN 16 mg/dL (7-18); Bilirubin, Total 0.5 mg/dL (0.2-1.0); CO2 29.9 mmol/L (21.0-32.0); CREATININE 0.9 mg/dL (0.70-1.30); Calculated LDL 115 mg/dL (<100); Chloride 106 mmol/L (98-107); Cholesterol 193 mg/dL (<200); Estimated GFR 99.62 (mL/min/1.73m2); Glucose 75 mg/dL (74-106); HDL Cholesterol 57 mg/dL (40-60); Potassium 4.3 mmol/L (3.5-5.1); Sodium 143 mmol/L (136-145); Triglyceride 105 mg/dL (<150)
== END 2024-01-07 11:16 | disposition home or self-care (01) ==
LOC: NCHCN 11:15
PROVIDERS: PCP Nurse Practitioner Family; Visit Provider Nurse Practitioner Family
DX: Z00.00 Encounter for general adult medical examination without abnormal findings (principal); Z13.1 Encounter for screening for diabetes mellitus
CPT/HCPCS: 80053; 80061; 83036

== ENCOUNTER → 2024-01-21 02:07 | Outpatient (CLI) | payer MEDICAID, SELFPAY ==
--- NOTE | 2024-01-21 08:34 | DI.CT_ITS ---
Exam(s) CT CHEST W EXAM: CT CHEST W CLINICAL HISTORY: f/u 6 mm noncalcified nodule inferior lingular segment on 12/30/21 CT, R91.1 TECHNIQUE: Imaging Protocol: Axial computed tomography images with coronal and sagittal reformatted images were created and reviewed CONTRAST MATERIAL: Intravenous: Omnipaque 350 Contrast volume:70 ml. COMPARISON: CT CT CHEST W from 01/15/[address] CHEST W from 12/30/2021 FINDINGS: Pulmonary parenchyma: Linear atelectasis left lower lobe. Posterior dependent changes. No consolida tion. No dominant measurable mass. Stable 3 and 6 millimeter nodules in the lingula. Stable nodul es in the left lower lobe measuring 5 and 7 millimeters in size. Tracheobronchial tree: No bronchiectasis or mucous plugging. Mediastinum and Ludy: No dominant adenopathy or fluid collection. Pleura: No effusion. No pneumothorax. Heart: The heart is mildly dilated. No coronary artery calcifications are seen. Aorta: Thoracic aorta non-dilated. Mild atherosclerotic changes. Upper abdomen: No acute findings.. Bones: Degenerative changes in the spine. Soft tissues: Mild bilateral gynecomastia. IMPRESSION: Stable pulmonary nodules. If the patient is at high risk for lung cancer, consider low-dose screening CT in 1 year. Otherwise no follow-up is recommended. (Christopher et al., 2017) RADIATION DOSE DELIVERED: 488.86mGy.cm Total DLP DATA REPOSITORY: All CT scans at this facility are submitted to the National Radiology Data Registry (NRDR) Dose Index Registry (DIR) with the [employer] ([employer]). RADIATION OPTIMIZATION: All CT scans at this facility use at least one of these dose optimization te chniques: automated exposure control; mA and/or kV adjustment per patient size (includes targeted exa ms where dose is matched to clinical indication); or iterative reconstruction.
[2024-01-21] MEDS: Normal Saline - Diluent 50 ML VIAL IJ (08:35)
[2024-01-21] MEDS: Omnipaque 350 MG/ML 500 ML BTL-Imaging package 100 ML IJ (08:36)
== END ==
PROVIDERS: PCP Nurse Practitioner Family; Visit Provider Nurse Practitioner Family
DX: R91.1 Solitary pulmonary nodule (principal)
CPT/HCPCS: 71260

== ENCOUNTER 2024-03-17 09:07 | Outpatient (CLI) | payer MEDICAID, SELFPAY ==
--- NOTE | 2024-03-17 08:59 | DI.RAD_ITS ---
Exam(s) XR KNEE RT 2V AP,LAT XR STANDING ALIGNMENT EXAM: XR STANDING ALIGNMENT CLINICAL HISTORY: RIGHT KNEE PAIN. TECHNIQUE: 2D digital imaging was performed. Standing AP views were performed from the pelvis throu gh the ankles. COMPARISON: CR XR knee RT 2V AP,lat from 07/18/2018 CR XR KNEE RT 2V AP,LAT from 03/17/2024 FINDINGS: BONES: No acute fracture is present. No bony destructive lesion is seen. Leg length discrepancy: Minimal overall leg length discrepancy at the level of the femoral heads. JOINTS: Knees: Hardware related to old tibial plateau fracture noted in proximal right tibia. Degene rative changes at the femoral tibial joint spaces, greater laterally. Valgus angulation at the right knee. Mild degenerative changes patellofemoral joint. Question of small joint space loose body at the patellofemoral joint. The left knee joint spaces are maintained. The ankle joints show mild bilateral narrowing. Hips: [id number] bilateral hip joint space narrowing, left greater than right. Periarticular s purring. SOFT TISSUE: Normal. IMPRESSION: Postsurgical and degenerative changes of the right knee. Question small loose body at the patellofem oral joint.. No significant leg length discrepancy. DATA REPOSITORY: RADIATION DOSE DELIVERED:
== END 2024-03-17 09:08 | disposition home or self-care (01) ==
LOC: DIORS 09:07
PROVIDERS: PCP Nurse Practitioner Family; Visit Provider Physician Assistant
DX: S82.141D Displaced bicondylar fracture of right tibia, subsequent encounter for closed fracture with routine healing (principal); M17.11 Unilateral primary osteoarthritis, right knee
CPT/HCPCS: 73560; 77073

== ENCOUNTER 2025-01-01 02:39 | Outpatient (CLI) | payer BC, SELFPAY ==
[2025-01-01 10:41] LABS: HCT 46.6 % (40.0-50.0); HGB 15.3 g/dL (13.5-17.5); MCH 31.4 pg (27.0-33.0); MCHC 32.8 % (32.0-36.0); MCV 96 fL (80-95); MPV 8.9 fL (8.0-11.0); Platelet Count 242 10^3/uL (130-400); RBC 4.88 10^6/uL (4.36-5.78); RDW 12.4 % (11.8-14.1); WBC 4.92 10^3/uL (4.4-10.8)
[2025-01-01 11:05] LABS: Anion Gap 8.1 mmol/L (3-11); BUN 16 mg/dL (7-18); CO2 27.9 mmol/L (21.0-32.0); CREATININE 0.9 mg/dL (0.70-1.30); Chloride 104 mmol/L (98-107); Glucose 100 mg/dL (74-106); Potassium 4.1 mmol/L (3.5-5.1); Sodium 140 mmol/L (136-145)
== END 2025-01-01 02:40 | disposition home or self-care (01) ==
PROVIDERS: PCP Nurse Practitioner Family; Visit Provider Student in an Organized Health Care Education/Training Program
DX: M17.11 Unilateral primary osteoarthritis, right knee (principal); Z01.818 Encounter for other preprocedural examination
CPT/HCPCS: 36415; 80048; 85027

== ENCOUNTER 2025-01-25 18:54 | Outpatient (REF) | payer BC, SELFPAY ==
[2025-01-25 19:50] LABS: Hemoglobin A1C 5.5 % (<5.7)
[2025-01-25 19:51] LABS: Calculated LDL 121 mg/dL (<100); Cholesterol 189 mg/dL (<200); HDL Cholesterol 49 mg/dL (>or=40); Triglyceride 96 mg/dL (<150)
[2025-01-26 19:13] LABS: PSA, Diagnostic 1.6 ng/mL (<=3.5)
== END 2025-01-25 18:55 | disposition home or self-care (01) ==
LOC: NCHCN 18:54
PROVIDERS: PCP Nurse Practitioner Family; Visit Provider Nurse Practitioner Family
DX: Z00.00 Encounter for general adult medical examination without abnormal findings (principal)
CPT/HCPCS: 80061; 83036; 84153

== ENCOUNTER 2025-07-19 13:40 | Outpatient (REF) | payer BC, SELFPAY ==
[2025-07-19 23:14] LABS: PSA, Screening 2.1 ng/mL (<=3.5)
== END 2025-07-19 13:41 | disposition home or self-care (01) ==
LOC: NCHCN 13:40
PROVIDERS: PCP Nurse Practitioner Family; Visit Provider Nurse Practitioner Family
DX: R39.11 Hesitancy of micturition (principal)
CPT/HCPCS: 84153